=== PATIENT | male | born 1975 | race Caucasian/White ===

== ENCOUNTER 2025-10-12 08:57 | Emergency (ER) | payer OTHER, SELFPAY ==
[2025-10-12 09:10] VITALS: BP 147/83; PULSE 60; RESP 16; TEMP 36.7; O2SAT 98; BMI 26.6
--- OUTSIDE RECORDS SUMMARY | 2025-10-12 10:07 | XMS_ITS | Clinical Summary ---
Author Organization [facility] Address [address] [place] [id number] Care Team Providers Care Slaughterer Religious Ritual Name Role Phone Unavailable Primary Care Provider Unavailabl e Source Comments You are receiving this document as you are listed as the primary care provider,follow-up provider, or the patient has been referred to you for consultation.This is in compliance with the Medicare and[facility] EHR Incentive Program,which states Providers who transition their patient to another setting of careor provider of care or refers their patient to another provider of care shouldprovide summary care record for each transition of care or referral. [facility] Allergies Active AllergyReactionsCriticalityNoted HwvdXauvteawPgofwkgah16/10/2006 PN: HIVES Other01/11/2016 PN: dust mites Medications MedicationSigDispense QuantityRefillsLast FilledStart DateEnd DateStatus diphenhydrAMINE HCl (BENADRYL ALLERGY OR) Active polyethylene glycol-electrolyte (GO-LYTELY) 236 g oral solution Take as directed in patient instructions: drink 2000 mL at 6PM the evening before your procedure and 2000 mL 4 hours before leaving home for your procedure. 4000 mL 5Active bisacodyl (DULCOLAX) 5 MG enteric coated tablet Take as directed in patient instructions: 4 tablets by mouth once at 5 PM the evening before your procedure. 4 Tablet 5Active ondansetron (ZOFRAN) 4 MG tablet Take 1 Tablet (4 mg) by mouth every 8 hours as needed for Nausea (during bowel prep). 3 Tablet 5Active Active Problems No known active problems Resolved Problems ProblemNoted DateDiagnosed DateResolved DateAnxiety with cltpxv9501/10/2019 11/28/2024Ex-fzlpbe59Low back pain with right-sided sciatica Vitamin D hcgdniefem82Tobacco use disorder Overview (06/06/2017): LW Onset: 45Siy91 ; Tobacco Abuse Encounters DateTypeDepartmentCare SlwtObgdfszlybn18/21/2025Notes/Orders [facility] at [facility] at [address] [place] [address] Ezekiel Rojas MD from Last 3 Months Immunizations ImmunizationAdministration DatesNext DueFlu Vac Preserv Free (3+yrs)07/24/2007 Pfizer Monovalent 12+ Purple Top03/02/2021,02/09/2021Td11/10/2003Tdap11/05/2018 Family History Medical HistoryRelationNameCommentsHeart DiseaseBirth MotherKaren FayCoronary Artery DiseaseNegative Family HistoryRelationNameStatusCommentsBirth FatherAlive MotherKaren FayAlive Social History Tobacco UseTypesPacks/DayYears UsedDateSmoking Tobacco: FormerCigarettes0.520 10/15/1993 - 10/15/2013Passive Smoke Exposure: NeverSmokeless Tobacco: Never Tobacco Cessation:Counseling Given: Not Answered Comments:Smoking History Packs/day: Alcohol UseStandard Drinks/RldnMyzfvgmhEbk24 (1 standard drink = 0.6 oz pure alcohol)1 drink a monthPHQ-2AnswerDate RecordedPHQ-2 Revvy904Hunger Vital SignAnswerDate RecordedWithin the past 12 months, you worried that your food would run out before you got the money to buymore.Never true11/28/2024 Within the past 12 months, the food you bought just didn't last and you didn't have money to get more.Never true11/28/2024PRAPARE - TransportationAnswerDate RecordedIn the past 12 months, has lack of transportation kept you from medical appointments or from getting medications?No11/28/2024In the past 12 months, has lack of transportation kept you from meetings, work, or from getting things needed for daily living?11/28/2024Housing Stability Vital SignAnswerDate RecordedIn the last 12 months, was there a time when you were not able to pay the mortgage or rent on time?No11/28/2024In the past 12 months, how many times have you moved where you were living?t any time in the past 12 months, were you homeless or living in a long-term (including now)?No11/28/2024Sex and Gender InformationValueDate RecordedSex Assigned at BirthNot on fileLegal AoaLfkj47/10/2012 5:25 AM CDTGender IdentityNot on fileSexual OrientationNot on file Last Filed Vital Signs Vital SignReadingTime TakenCommentsBlood Eorylrly480/7311/28/2024 1:30 PM BED AND BREAKFAST OPERATOR Ctznc167711/28/2024 1:30 PM GTSYxpwgdcfltl21.3 ??C (97.4 ??F)01/16/2024 9:14 AM CDTRespiratory Qdye391411/28/2024 1:30 PM CSTOxygen Kbhnvqwnrg63%01/16/2024 9:14 AM CDTInhaled Oxygen Concentration--Zzkxic73.9 kg (176 lb 3.2 oz)11/28/2024 1:30 PM KGHFieffj709.2 cm (5' 9.75)11/28/2024 1:30 PM CSTBody Mass Index25.46 11/28/2024 1:30 PM BED AND BREAKFAST OPERATOR Plan of Treatment Health MaintenanceDue DateLast DoneCommentsColon Cancer Screening Plan Due 1977Diabetes Screening- (based on age and BMI)1977HIV Screening (Preventive Services)1993Adult Preventive Visit1995HepB Vaccine (1) 11/27/19968523Tnutdlprjuv64/13/202403/, 10/30/2018, 08/24/2010COVID-19 Vaccine ( season)/, 02/09/2021Influenza Vaccine (#1)/07/2007Zoster/Shingles Vaccine (1 of 2)2027DTaP/Tdap/Td Vaccine (2 - Tdap)/, 11/10/2003Hep C Screening (Preventive Services)Anuuvhgbe93/13/2019HepA VaccineAged OutNo longer eligible based on patient's age to complete this topicHib VaccineAged OutNo longer eligible based on patient's age to complete this topicIPV (Polio) VaccineAged OutNo longer eligible based on patient's age to complete this topicMCV4 VaccineAged OutNo longer eligible based on patient's age to complete this topicMeningococcal B VaccineAged OutNo longer eligible based on patient's age to complete this topic Pneumococcal VaccineAged OutNo longer eligible based on patient's age to complete this topic Procedures Procedure NamePriorityDate/TimeAssociated DiagnosisCommentsLIPID PANEL & DIRECT LDL (IF NEEDED)Ymqpqjk9412/25/2018 7:24 AM CDT Serum lipids high HEPATITIS C ANTIBODY, WITH REFLEX (ANTI-HCV)Kbztnhm7411/27/2018 3:31 PM BED AND BREAKFAST OPERATOR Hepatic hemangioma from Last 3 Months or Most Recently Relevant to Health Maintenance Results * Lipid Panel - LDLD If Trig High (12/25/2018 7:24 AM CDT)ComponentValueRef RangeTest MethodAnalysis TimePerformed AtPathologist BkugovdkuWknbjecdkqc3524 - 199 mg/dLPN UQJQRoustvenaibbo615 - 149 mg/dLPN SOFTHDL Ylherspnckc27>39 mg/dLPN SOFTCholesterol/HDL Ratio Screen3.3PN SOFTLDL Ghtbscsgqf48826 - 130 mg/dLPN SOFTNon HDL Chol, Vbcm7360 - 159 mg/dLPN SOFTHours Skycrzi50.0PN SOFT Specimen (Source)Anatomical Location / LateralityCollection Method / Volume Collection TimeReceived Time12/25/2018 7:24 AM CDT12/25/2018 8:15 AM CDT Narrative PN SOFT - 12/25/2018 8:41 AM CDT Performed at [facility], [address] [place] [address] CLIA number [id number] Authorizing ProviderResult TypeResult StatusYailia Hand MDLAB_1Final Result Performing OrganizationAddressty/[facility] CodePhone Number PN SOFT [address] [place] [address] * Hepatitis C Virus Sydni with Reflex In-House (2018 3:31 PM BED AND BREAKFAST OPERATOR)Component ValueRef RangeTest MethodAnalysis TimePerformed AtPathologist Signature Hepatitis C AntibodyNonreactiveNonreactivePN SOFTSpecimen (Source)Anatomical Location / LateralityCollection Method / VolumeCollection TimeReceived Time 2018 3:31 PM CST2018 6:32 PM BED AND BREAKFAST OPERATOR Narrative PN SOFT - 2018 7:54 PM BED AND BREAKFAST OPERATOR Performed at [address] [address] CLIA number [id number] Authorizing ProviderResult TypeResult StatusEz Suarez MDLAB_1Final Result Performing OrganizationAddressCity/[facility] CodePhone Number SOFT [address] [place] [phone] from Last 3 Months or Most Recently Relevant to Health Maintenance Insurance * Guarantor: Ehsan Kan TypeRelation to PatientDate of BirthPhone Billing AddressPersonal/KbgftkMpsj85/ [address] [place] [address] * Guarantor: Ehsan Kan TypeRelation to PatientDate of BirthPhone Billing AddressMVA/HKDLyio33 1975 [address] [place] [address]
--- OUTSIDE RECORDS SUMMARY | 2025-10-12 10:08 | XMS_ITS | Clinical Summary ---
Author Organization [facility] Address [address] [place] [address] Care Team Providers Care Backroom Associate Name Role Phone Unavailable Primary Care Provider Unavailabl e Allergies Active AllergyReactionsCriticalityNoted QrooHbxogpylUcsegrnrk67/03/2015 Medications MedicationSigDispense QuantityRefillsLast FilledStart DateEnd DateStatus benzonatate (TESSALON) 200 MG capsule Indications:Post-viral cough syndromeTake 1 capsule (200 mg) by mouth 3 times daily as needed 30 capsule 08/18/2022ctive albuterol (PROAIR HFA/PROVENTIL HFA/VENTOLIN HFA) 108 (90 Base) MCG/ACT inhaler Indications:Post-viral cough syndromeInhale 2 puffs into the lungs every 6 hours 18 g 08/18/2022ctive Active Problems ProblemNoted DateDiagnosed DateAnxiety with anllyp1401/10/2019 Social History Tobacco UseTypesPacks/DayYears UsedDateSmoking Tobacco: Never AssessedAdolescent EducationAnswerDate RecordedGetting School Help NeededNot on file07/08/2023Sex and Gender InformationValueDate RecordedSex Assigned at BirthNot on fileLegal NxbZixj14/04/2012 4:42 AM CSTGender IdentityNot on fileSexual OrientationNot on file Last Filed Vital Signs Vital SignReadingTime TakenCommentsBlood Cykakllw173/8011 2:21 PM CDT Rziac4036 2:21 PM VRHVatukrswhos77.4 ??C (97.6 ??F)08/18/2022 2:21 PM CDTRespiratory Ucjy8729 4:41 PM CDTOxygen Vaijucznww52%08/18/2022 2:21 PM CDTInhaled Oxygen Concentration--Weight--Height--Body Mass Index-- Plan of Treatment Not on file Insurance
[2025-10-12] MEDS: TETANUS/DIPHTH/PERTUSSIS 0.5 ML SYRINGE IM (10:17)
--- NOTE | 2025-10-12 12:18 | ED.GENADULT ---
HPI - General Adult General Date Seen: 10/12/25 Chief complaint: Laceration/Wound Stated complaint: LT hand cut Time Seen by Provider: 10/12/25 09:18 History of Present Illness HPI narrative: Patient is a 49-year-old generally healthy man who was at work, using a chisel which slipped and cut through his glove into his left thenar eminence. He has a laceration there, bleeding controlled. He notes no loss of sensation or difficulty with motor function of the thumb. He is uncertain of his last tetanus shot. Related Data Home Medications ?Medication ?Instructions ?Recorded ?Confirmed No Known Home Medications 10/12/25 10/12/25 Allergies Allergy/AdvReac Type Severity Reaction Status Date / Time No Known Drug Allergies Allergy Verified 10/12/25 09:16 [facility] Social History Smoking Status: Former smoker What tobacco products do you use: cigarettes Smoking quit date/years: >15 years ago How often do you have a drink containing alcohol: 2-4 times a month AUDIT-C Alcohol total score: 2 Non-prescribed substance use: marijuana (any form) Exam Narrative: Exam Narrative: Vital signs reviewed In general, alert, well-appearing that age male. Extremities: Examination of the left hand shows a 2 cm laceration over the thenar eminence. Bleeding controlled. Motor function of the thumb is intact, distal sensation is normal. Const: Vital Signs, click to edit/add: Vital Signs - 24 hr 10/12/25 09:10 Temperature 98.1 F Pulse Rate [Pulse Oximeter] 60 Respiratory Rate 16 Blood Pressure [Ri ght Upper Arm] 147/83 H Pulse Oximetry 98 Oxygen Delivery Me thod Room Air Course Course ED Course: Procedure note: The wound was anesthetized using lidocaine with epinephrine, explored without evidence of injury to deeper structures or foreign body. Cleaned with water. Closed using a total of for superficial simple interrupted sutures using 4-0 nylon. He tolerated this well without immediate complication. Dressing applied. Tetanus updated. Reviewed routine wound care, suture removal in about 7 days in clinic. Return for signs of infection. Vital Signs Vital signs: Initial Vital Signs Temperature 98.1 F 10/12/25 09:10 Temperature Source Temporal Artery Scan 10/12/25 09:10 Pulse Rate 60 10/12/25 09:10 Respiratory Rate 16 10/12/25 09:10 Blood Pressure 147/83 H 10/12/25 09:10 Blood Pressure Mean 104 10/12/25 09:10 Blood Pressure Position Sitting 10/12/25 09:10 Pulse Oximetry 98 10/12/25 09:10 Oxygen Delivery Method Room Air 10/12/25 09:10 Vital Signs Temperature 98.1 F 10/12/25 09:10 Pulse Rate 60 10/12/25 09:10 Respiratory Rate 16 10/12/25 09:10 Blood Pressure 147/83 H 10/12/25 09:10 Pulse Oximetry 98 10/12/25 09:10 Oxygen Delivery Method Room Air 10/12/25 09:10 Temperature 98.1 F 10/12/25 09:10 Pulse Rate 60 10/12/25 09:10 Respiratory Rate 16 10/12/25 09:10 Blood Pressure 147/83 H 10/12/25 09:10 Pulse Oximetry 98 10/12/25 09:10 Oxygen Delivery Method Room Air 10/12/25 09:10 Medications Administered Medications: Discontinued Medications Generic Name Dose Route Start Last Admin Trade Name Los PRN Reason Stop Dose Admin Diphtheria/Tetanus/Acell Pertussis 0.5 ml 10/12/25 09:46 10/12/25 10:17 Tetanus/Diphth/Pertussis 0.5 Ml Syringe IM 10/12/25 09:47 0.5 ml .ONCE ONE Administration Discharge Plan Discharge Clinical Impression: Laceration Patient Disposition: Home, Self-Care Condition: Improved Instructions: Laceration (ED) Additional Instructions: Sutures should be removed in about 1 week. This can be done as a nurse visit in clinic. For signs of infections such as increasing redness, swelling, significant pain, return to the ER for re-evaluation. Prescriptions: No Action No Known Home Medications Stand Alone Forms: MyHealth Info Instructions
== END 2025-10-12 10:28 | disposition home or self-care (01) ==
PROVIDERS: Emergency Provider Emergency Medicine
DX: S61.412A Laceration without foreign body of left hand, initial encounter (principal); W26.9XXA Contact with unspecified sharp object(s), initial encounter
CPT/HCPCS: 12001; 90471; 90715; 99282; 99283